=== PATIENT | female | born 1935 | race Caucasian/White ===

== ENCOUNTER → 2017-08-27 | Outpatient (CLI) | payer MEDICARE, OTHER ==
[~2017-08-27] MED LIST: Aspirin EC81 MG PO; Benicar40 MG PO; DIPH50 PO; Excedrin Extra1 EACH; Klor-Con M1010 MEQ PO; LEVSOD125 PO; LORA1 PO; Naproxen500 MG PO; Oxycodone-Apap1 EAC3 PO; Oxycontin20 MG PO; Prilosec Otc20 MG
[2017-08-30 14:31] LABS: Stool Occult Blood Guaiac 1 Pos (Neg); Stool Occult Blood Guaiac 2 Pos (Neg)
[2017-08-30 14:32] LABS: Stool Occult Blood Guaiac 3 Pos (Neg)
== END | disposition home or self-care (01) ==
LOC: LAB 11:45 → LAB SHORT 08-29 11:45 → LAB FUT 08-27 12:20
PROVIDERS: Internal Medicine
DX: D64.9 Anemia, unspecified (principal)
CPT/HCPCS: 82272

== ENCOUNTER 2017-09-17 09:11 | Day surgery (SDC) | payer MEDICARE, OTHER ==
[~2017-09-17] VITALS: Ht 162.6 cm; Wt 71.4 kg
== END 2017-09-17 12:15 | disposition home or self-care (01) ==
LOC: ORSCSDS 09:11
PROVIDERS: Internal Medicine Gastroenterology
PROC: 0DJD8ZZ Inspection of Lower Intestinal Tract, Via Natural or Artificial Opening Endoscopic (ICD-10-PCS; principal; 2017-09-17 10:30)
PROC: 0DB68ZX Excision of Stomach, Via Natural or Artificial Opening Endoscopic, Diagnostic (ICD-10-PCS; principal; 2017-09-17 10:30)
PROC: 0DB98ZX Excision of Duodenum, Via Natural or Artificial Opening Endoscopic, Diagnostic (ICD-10-PCS; principal; 2017-09-17 10:30)
DX: R19.5 Other fecal abnormalities (principal); K25.9 Gastric ulcer, unspecified as acute or chronic, without hemorrhage or perforation; K57.30 Diverticulosis of large intestine without perforation or abscess without bleeding; D50.9 Iron deficiency anemia, unspecified; Z86.010 Personal history of colon polyps; Z87.891 Personal history of nicotine dependence; I10 Essential (primary) hypertension; E07.9 Disorder of thyroid, unspecified; Z79.899 Other long term (current) drug therapy
CPT/HCPCS: 87081; 88305; J1980; J7120

== ENCOUNTER → 2017-10-09 | Outpatient (CLI) | payer MEDICARE, OTHER ==
[2017-10-09 14:05] LABS: Stool Occult Bld Immuno 1 Negative (NEGATIVE); Stool Occult Bld Immuno 2 Negative (NEGATIVE)
== END | disposition home or self-care (01) ==
LOC: LAB SHORT 08:00 → LAB 08:00 → LAB FUT 09-17 17:20
PROVIDERS: Internal Medicine Gastroenterology
DX: D50.9 Iron deficiency anemia, unspecified (principal); R19.5 Other fecal abnormalities
CPT/HCPCS: 82274

== ENCOUNTER → 2018-01-02 | Outpatient (CLI) | payer MEDICARE, OTHER ==
[2018-01-03 13:54] LABS: Stool Occult Bld Immuno 1 Negative (NEGATIVE); Stool Occult Bld Immuno 2 Negative (NEGATIVE); Stool Occult Bld Immuno 3 Negative (NEGATIVE)
== END | disposition home or self-care (01) ==
LOC: LAB SHORT 15:31 → LAB 15:31
PROVIDERS: Internal Medicine Gastroenterology
DX: D50.9 Iron deficiency anemia, unspecified (principal)
CPT/HCPCS: 82274

== ENCOUNTER 2019-07-06 21:45 | Emergency (ER) | payer MEDICARE, OTHER ==
[~2019-07-06] VITALS: Ht 165.1 cm; Wt 76.2 kg
[2019-07-06] MEDS ORDERED: CENTRUM SILVER1 EAC2 PO (23:18)
[2019-07-06] MEDS ORDERED: Vitamin C100 M1 PO (23:18)
[2019-07-06] MEDS ORDERED: CALCIUM 600 +1 EA11 PO (23:20)
[2019-07-06] MEDS ORDERED: Qualaquin324 MG PO (23:21)
[2019-07-06] MEDS ORDERED: MAGNESIUM OXID500 MG PO (23:21)
== END 2019-07-07 00:19 | disposition home or self-care (01) ==
LOC: ER 21:45
DX: S00.83XA Contusion of other part of head, initial encounter (principal); S00.511A Abrasion of lip, initial encounter; S00.31XA Abrasion of nose, initial encounter; W01.198A Fall on same level from slipping, tripping and stumbling with subsequent striking against other object, initial encounter; Z88.8 Allergy status to other drugs, medicaments and biological substances; Z88.7 Allergy status to serum and vaccine; Z91.018 Allergy to other foods; Z79.899 Other long term (current) drug therapy; Z79.891 Long term (current) use of opiate analgesic; I10 Essential (primary) hypertension; Z87.891 Personal history of nicotine dependence
CPT/HCPCS: 99283

== ENCOUNTER 2021-10-09 11:36 | Emergency (ER) | payer MEDICARE, OTHER ==
[~2021-10-09] VITALS: Ht 165.1 cm; Wt 72.6 kg
[~2021-10-09 11:36] MED LIST changes: +ASCO500 PO; +CALCIUM 600 +1 EA11 PO; +CENTRUM SILVER1 EAC2 PO; +Cymbalta30 MG PO; +ESOMEPRAZOLE MA40 MG PO; +MAGNESIUM OXID500 MG PO; +ONDA4ODT MM; +Qualaquin324 MG PO; +SYNTHROID125 MC1 PO; +Vitamin C100 M1 PO
[2021-10-09] MEDS ORDERED: ONDA4 PO (14:28)
[2021-10-09] MEDS ORDERED: Percocet 5-3251 EACH PO (14:28)
== END 2021-10-09 14:50 | disposition home or self-care (01) ==
LOC: ER 11:36
DX: S52.501A Unspecified fracture of the lower end of right radius, initial encounter for closed fracture (principal); S00.83XA Contusion of other part of head, initial encounter; S09.90XA Unspecified injury of head, initial encounter; W01.0XXA Fall on same level from slipping, tripping and stumbling without subsequent striking against object, initial encounter; E03.9 Hypothyroidism, unspecified; N18.30 Chronic kidney disease, stage 3 unspecified; K21.9 Gastro-esophageal reflux disease without esophagitis; Z88.5 Allergy status to narcotic agent; Z88.7 Allergy status to serum and vaccine; Z88.8 Allergy status to other drugs, medicaments and biological substances; Z91.018 Allergy to other foods; Z79.899 Other long term (current) drug therapy
CPT/HCPCS: 29125; 70450; 72125; 73080; 73110; 99284-25; A9270

== ENCOUNTER 2025-05-02 17:57 | Emergency (ER) | payer MEDICARE ==
[~2025-05-02] VITALS: Ht 121.9 cm; Wt 73.0 kg
[~2025-05-02 17:57] MED LIST changes: +ONDA4 PO; +Percocet 5-3251 EACH PO
[2025-05-02] MEDS ORDERED: Ketorolac Tromethamine 30mg Vial IM ONE (21:20)
[2025-05-02] MEDS ORDERED: OxyCODONE 5 mg/Acetamin 325 mg TABLET PO ONE (21:20)
[2025-05-02] MEDS ORDERED: PRED20 PO (21:39)
[2025-05-02] MEDS ORDERED: Percocet 5-3251 EACH PO (21:39)
[2025-05-02] MEDS ORDERED: RX Prepack 6 Tabs Oxycodone 5mg UD ONE (21:45)
[2025-05-02] MEDS ORDERED: RX Prepack 2 Sprays Naloxone HCL 4 MG/SPRAY UD ONE (21:45)
[2025-05-02 22:10] VITALS: BP 121/76
== END 2025-05-02 22:18 | disposition home or self-care (01) ==
LOC: ER 17:57
DX: M54.31 Sciatica, right side (principal); I10 Essential (primary) hypertension
CPT/HCPCS: 73502; 93971; 96374; 99284-25; A9270; J1885